=== PATIENT | female | born 1990 | race Caucasian/White ===

== ENCOUNTER 2021-11-20 15:38 | Emergency (ER) | payer OTHER ==
[2021-11-20 16:35] LABS: HEMOGLOBIN 12.5 gm/dl (12.3-15.3); RED BLOOD COUNT 4.44 M/UL (4.00-5.10); WHITE BLOOD COUNT 6.6 K/UL (4.5-11.0)
[2021-11-20 16:54] LABS: BUN/CREATININE RATIO 18 (0-10)
[2021-11-20] MEDS ORDERED: OMNICEF 300 MG300 MG PO (17:17)
== END 2021-11-20 17:40 | disposition home or self-care (01) ==
LOC: ER1 15:38
PROVIDERS: Physician Assistant
DX: N39.0 Urinary tract infection, site not specified (principal)
CPT/HCPCS: 80053; 81001; 83690; 84439; 84443; 84703; 85025; 93005; 99284